=== PATIENT | female | born 1980 | race Caucasian/White ===

== ENCOUNTER → 2018-06-30 15:50 | Outpatient (CLI) | payer OTHER, SELFPAY ==
[2018-07-05 14:42] LABS: HPV Reflexed? NOT INDICATED
== END ==
PROVIDERS: Visit Provider Obstetrics & Gynecology
DX: Z12.4 Encounter for screening for malignant neoplasm of cervix (principal)
CPT/HCPCS: 88175; G0145

== ENCOUNTER → 2019-09-15 | Outpatient (CLI) | payer OTHER, SELFPAY ==
[2019-09-19 20:06] LABS: Age Gdln ACOG Testing 30-65 (.)
[2019-09-21 11:46] LABS: HPV APTIMA, High Risk Negative (Negative)
[2019-09-21 11:49] LABS: HPV Reflexed? YES, CHARGE PATIENT
== END | disposition home or self-care (01) ==
LOC: LABSPEC 16:21
PROVIDERS: Visit Provider Obstetrics & Gynecology
DX: Z12.4 Encounter for screening for malignant neoplasm of cervix (principal)
CPT/HCPCS: 87624; 88175; G0145

== ENCOUNTER → 2021-06-10 14:21 | Outpatient (CLI) | payer OTHER, SELFPAY ==
[2021-06-13 16:19] LABS: HPV APTIMA, High Risk Negative (Negative)
== END ==
PROVIDERS: Visit Provider Obstetrics & Gynecology
DX: Z12.4 Encounter for screening for malignant neoplasm of cervix (principal)
CPT/HCPCS: 87624; 88175; G0145

== ENCOUNTER → 2021-07-11 07:18 | Outpatient (CLI) | payer OTHER, SELFPAY ==
--- NOTE | 2021-07-11 07:22 | BI_ITS ---
MAMMOGRAPHY - BILATERAL SCREENING REASON FOR EXAM: Female, 40 years old. Routine annual screening examination. PERTINENT HISTORY: Mother with breast cancer. Grandmother with breast cancer. TECHNIQUE: Digital bilateral breast kulwant (3D mammographic acquisition) in the CC and MLO projections. 2-D mediolateral oblique (MLO) and craniocaudad (CC) views of both breasts were obtained. CAD: Full Field Digital Mammography with Computer Added Detection was performed. COMPARISON: None. Baseline examination. FINDINGS: Breast Composition: The breasts are extremely dense, which lowers the sensitivity of mammography. There are no dominant masses or suspicious calcifications. No other significant abnormalities are identified. BI/SCRN MAMM (CAD)W/KULWANT BILAT IMPRESSION: Negative screening mammogram. Yearly followup mammogram recommended. (A) ASSESSMENT CATEGORY: BIRADS Category 1: Negative. A letter regarding these results will be sent to the patient by the facility within 30 days. Approximately 10% of breast cancers are not detected by mammography. A normal mammogram should not delay biopsy of a clinically suspicious abnormality. [id number] Electronically Signed: Reno Franco MD at 8:48 EDT , Service support ,
[2021-07-11 09:21] LABS: NATERA MAILED SPECIMEN
[2021-07-11 09:22] LABS: Vitamin D,25 Hydroxy 39.5 ng/mL
[2021-07-11 09:32] LABS: Cholesterol 162 mg/dL (200); Glucose 100 mg/dL (74-106); High Density Lipoprotein 54 mg/dL; Thyroid Stim Hormone (TSH) 5.72 uIU/mL (0.358-3.74); Triglycerides 76 mg/dL; Very Low Density Lipoprotein 15 mg/dL (5-40)
== END ==
LOC: OPBI 07:22 → LAB 07:49
PROVIDERS: Referring Provider Obstetrics & Gynecology; Visit Provider Obstetrics & Gynecology
DX: Z12.31 Encounter for screening mammogram for malignant neoplasm of breast (principal); Z13.21 Encounter for screening for nutritional disorder; Z13.29 Encounter for screening for other suspected endocrine disorder; Z13.220 Encounter for screening for lipoid disorders; Z13.1 Encounter for screening for diabetes mellitus
CPT/HCPCS: 36415; 77063; 77067; 80061; 82306; 82947; 84443

== ENCOUNTER → 2021-08-26 09:23 | Outpatient (CLI) | payer OTHER, SELFPAY ==
[2021-08-26 12:18] LABS: Absolute Neutrophil Count 3.8 X10^3/uL (2.0-7.7); Basophil# 0.03 X10^3/uL; Basophil% 0.5 % (0-1); Eosinophil# 0.16 X10^3/uL; Eosinophils% 2.7 % (0-5); Hematocrit 39.1 % (37-47); Hemoglobin 12.9 g/dL (12.0-15.0); Lymphocyte % 24.9 % (19-41); Mean Corpuscular Hgb 31.7 pg (27.0-32.0); Mean Corpuscular Volume 96.1 fL (81-99); Mean Platelet Vol. 9.9 fl (6.2-12.0); Monocyte# 0.54 X10^3/uL; NRBC Flagged by Analyzer 0 % (0-5); Neutrophil # 3.77 X10^3/uL (2.7-7.7); Neutrophil % 62.6 % (47-70); Platelet Count 258 K/mm3 (150-450); RBC Distribution Width CV 11.9 % (11.6-14.6); RBC Distribution Width SD 41.6 fl (35.1-43.9); Red Blood Count 4.07 M/mm3 (4.2-5.4)
[2021-08-26 13:01] LABS: ALB/GLOB Ratio 1.2 RATIO (0.9-2.4); AST(SGOT) 14 U/L (15-37); Alanine Aminotransfer ALT/SGPT 25 U/L (13-56); Albumin, Serum 3.7 g/dL (3.2-5.0); Alkaline Phosphatase 45 U/L (45-117); Anion Gap 5 (5-15); BUN 12 mg/dL (7-18); BUN/Creat Ratio 18.2 RATIO (10-20); Calcium,Total 9.2 mg/dL (8.5-10.1); Chloride 106 mmol/L (98-107); Creatinine, Serum 0.66 mg/dL (0.55-1.02); EST Glomerular Filtration Rate 105 mL/min (>60); Est Glom Filt Rate - Afr Amer 127 mL/min (>60); Globulin 3.2 g/dL (2.2-4.2); Glucose 82 mg/dL (74-106); Potassium 3.9 mmol/L (3.5-5.1); Protein, Total 6.9 g/dL (6.4-8.2); Sodium Level 140 mmol/L (136-145); T4 Free Direct 0.72 ng/dL (0.76-1.46); Thyroid Stim Hormone (TSH) 4.24 uIU/mL (0.358-3.74)
== END ==
PROVIDERS: PCP Internal Medicine; Referring Provider Internal Medicine; Visit Provider Internal Medicine
DX: R94.6 Abnormal results of thyroid function studies (principal)
CPT/HCPCS: 36415; 80053; 84439; 84443; 85025

== ENCOUNTER 2021-10-07 09:15 | Outpatient (CLI) | payer OTHER, SELFPAY ==
[2021-10-07 13:02] LABS: T4 Free Direct 0.81 ng/dL (0.76-1.46); Thyroid Stim Hormone (TSH) 3.61 uIU/mL (0.358-3.74)
== END 2021-10-07 23:59 | disposition short-term general hospital (02) ==
LOC: BIMLAB 09:16
PROVIDERS: PCP Internal Medicine; Visit Provider Internal Medicine
DX: R03.0 Elevated blood-pressure reading, without diagnosis of hypertension (principal); E03.9 Hypothyroidism, unspecified; R94.6 Abnormal results of thyroid function studies
CPT/HCPCS: 36415; 84439; 84443

== ENCOUNTER → 2022-07-14 | Outpatient (CLI) | payer OTHER, SELFPAY ==
--- NOTE | 2022-07-14 11:05 | BI_ITS ---
MAMMOGRAPHY - BILATERAL SCREENING REASON FOR EXAM: Female, 41 years old. Routine annual screening examination. PERTINENT HISTORY: Non-contributory. TECHNIQUE: Digital bilateral breast kulwant (3D mammographic acquisition) in the CC and MLO projections. 2-D mediolateral oblique (MLO) and craniocaudad (CC) views of both breasts were obtained. CAD: Full Field Digital Mammography with Computer Added Detection was performed. COMPARISON: Comparison is made with prior study 07/11/2021. FINDINGS: Breast Composition: The breasts are extremely dense, which lowers the sensitivity of mammography. There are no dominant masses or suspicious calcifications. No other significant abnormalities are identified. There has been no significant change since the prior study. BI/SCRN MAMM (CAD)W/KULWANT BILAT IMPRESSION: Stable bilateral screening mammogram. Yearly follow-up mammogram recommended. (A) ASSESSMENT CATEGORY: BIRADS Category 1: Negative. A letter regarding these results will be sent to the patient by the facility within 30 days. Approximately 10% of breast cancers are not detected by mammography. A normal mammogram should not delay biopsy of a clinically suspicious abnormality. [id number] Electronically Signed: Reno Franco MD at 12:37 EDT ,
== END | disposition home or self-care (01) ==
LOC: OPBI 11:04
PROVIDERS: PCP Internal Medicine; Referring Provider Obstetrics & Gynecology; Visit Provider Obstetrics & Gynecology
DX: Z12.31 Encounter for screening mammogram for malignant neoplasm of breast (principal)
CPT/HCPCS: 77063; 77067

== ENCOUNTER → 2022-12-01 | Outpatient (CLI) | payer OTHER, BC, SELFPAY | END | disposition home or self-care (01) | LOC: LABSPEC 16:01 | PROVIDERS: PCP Internal Medicine; Referring Provider Surgery; Visit Provider Surgery | DX: K42.9 Umbilical hernia without obstruction or gangrene (principal) | CPT/HCPCS: 87081 ==

== ENCOUNTER 2022-12-10 07:44 | Day surgery (SDC) | payer OTHER, BC, SELFPAY ==
[2022-12-10] MEDS: Lactated Ringers 1,000 ML 15 ML IV (08:34)
[2022-12-10 08:37] LABS: Hematocrit 39.7 % (37-47); Hemoglobin 13.6 g/dL (12.0-15.0); Mean Corp Hgb Conc 34.3 g/dL (32-36); Mean Corpuscular Hgb 32.2 pg (27.0-32.0); Mean Corpuscular Volume 94.1 fL (81-99); Mean Platelet Vol. 9.8 fl (6.2-12.0); Platelet Count 257 K/mm3 (150-450); RBC Distribution Width CV 11.9 % (11.6-14.6); RBC Distribution Width SD 40.7 fl (35.1-43.9); Red Blood Count 4.22 M/mm3 (4.2-5.4); White Blood Count 5.3 K/mm3 (4.4-11.0)
[2022-12-10 08:42] LABS: International Normalized Ratio 1.2; Partial Thromboplast Time 36.3 Seconds (24.1-36.2); Prothrombin Time (Protime)PT. 14.5 SECONDS (11.7-14.9)
[2022-12-10 08:43] VITALS: BP 113/63; PULSE 78; RESP 18; TEMP 37.2; O2SAT 100; BMI 26.3
[2022-12-10 08:49] LABS: AST(SGOT) 10 U/L (15-37); Alanine Aminotransfer ALT/SGPT 20 U/L (13-56); Albumin, Serum 4.4 g/dL (3.2-5.0); Alkaline Phosphatase 40 U/L (45-117); Bilirubin, Direct 0.17 mg/dL (0.00-0.30); Protein, Total 7.4 g/dL (6.4-8.2)
[2022-12-10] MEDS: Cefazolin 2 GM in 0.9% Normal Saline 100 ML IV (10:11)
--- NOTE | 2022-12-10 10:12 | PCM.HP.BLA ---
History and Physical Date of Admission: 12/10/22 Date of Service:? 12/01/22 MR#: [id number] Acct: [id number] Name:ROLANDO FARFAN Rep #: [id number] : 1980 ? ? Provider: Dr. Mc Valenzuela MD Age/Sex:? 42/F ? ? Location: [facility] Status: Signed Intake Vital Signs ? 12/01/2312:54 Height 5 ft 4 in Weight: 157 lb BMI 26.9 BP 132/84 H Blood Pressure Location Rt brachial Position Standing Respiration 17 Pulse 79 Pulse Source Monitor Temp 97.6 F L Temp Source Temporal Pulse Oximetry (%) 99 Oxygen Delivery Method room air Intake Visit Reasons:?UMBILICAL HERNIA Chief Complaint: hernia concerns Is patient in pain?: Yes Allergies No Known Allergies Allergy (Unverified 12/01/22 13:55) Medications biotin 1 mg capsule 1 mg PO DAILY 06/10/21 [History Confirmed 12/01/22] multivitamin 1 tab PO DAILY 06/10/21 [History Confirmed 12/01/22] Saccharomyces boulardii 250 mg capsule (Daily Probiotic (S. boulardii)) 5,000 mmu cells PO DAILY 11/27/22 [History Confirmed 12/01/22] PFSH Medical History? Abnormal thyroid function test Elevated blood pressure reading in office without diagnosis of hypertension Hypothyroidism Umbilical hernia Surgical History? H/O section History of wisdom tooth extraction, class IV edentulism Hx of tubal ligation Family History? Mother Breast cancer,? Onset Age: 71 Social History? household members:? family number of children:? 2 current occupational status:? employed current occupation:? [employer] pets and animals:? Yes Smoking Status:? Never smoker second hand exposure:? No alcohol intake:? current alcohol intake frequency: holidays/special occasions only substance use type:? does not use what type of physical activity do you participate in:? walking frequency:? 3-4 times per week seatbelt use:? always do you feel safe at home:? Yes additional social history:? [employer] HPI HPI HPI: Patient is a 42-year-old female who presents for umbilical hernia.? This finding was first noticed by Dr. Mccormick of [facility] during a annual exam July 02, 2022.? However, patient is referred from Dayo Fox NP.? She states at the time of the diagnosis, this was an incidental finding and she had plan to get a second opinion, but really had no symptoms so these plans lapsed.? She now notes that she has had 4 weeks of burning, bloating, and shooting pain with this hernia.? She reports that the pain seems to be occurring more frequently and has persisted since her exam at the end of last week.? She notes that bending over to put her socks on today aggravated the pain.? She also reports that her bowel movements have been erratic and that she has always had some difficulty, but they transiently improved, and then have returned to more of a constipation problem.? She denies any complete cessation of bowel function or any unexplained nausea and vomiting.? She also notes that these bowel movements are nonbloody.? She denies any significant bulging with this hernia defect and is unable to recall how it may have occurred.? She does have a history of 2 pregnancies?1 born via a difficult vaginal delivery and 1 via section.? This represents her only past surgical history.? 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 She does express a wish to return to more physical activity once she can hopefully have this hernia addressed. Patient has no personal history of smoking.? Has no personal history of recurrent cutaneous infections including staph.? ROS General General: No weight change, appetite, fatigue, colon cancer, breast cancer or weakness HEENT HEENT: No difficulty swallowing, eye injury, eye surgery, swollen glands or hoarseness Endo Endocrine: No thyroid disease, diabetes mellitus, thyroid cancer, Hair loss, heat intolerance or cold intolerance Skin Skin: No rash or changing moles Musc Musculoskeletal: No back problems, arthritis, rheumatoid arthritis, gout or joint pain Cardio Cardiovascular: No murmur, pacemaker, heart disease, atrial fibrillation, high blood pressure, heart attack, heart stent, palpitations, shortness of breat with exertion or chest pain Psych Psychiatric: Yes anxiety; No depression or hearing voices Resp Respiratory: No shortness of breath, No sleep apnea, No cough, No COPD, No asthma, No emphysema and No wheezing Gastro Gastrointestinal: Yes abdominal pain, Yes nausea or vomiting, Yes diarrhea, Yes constipation, No blood in stool, No acid reflux, No hemorrhoids, No ulcers, No gallbladder problem and No black,tarry stools Nitesh Hematologic: No blood thinners, No blood disorders, No bleeding, No anemia and No blood clots Neuro Neurologic: No system reviewed and no additional complaints, except as documented, No as per HPI, No abnormal gait, No abnormal hearing, No abnormal movements, No abnormal speech, No behavioral changes, No burning sensations, No confusion, No convulsions, No disequilibrium, No dizziness, No localized weakness, No frequent falls, No headache(s), No lack of coordination, No loss of vision, No memory loss, No numbness, No other visual disturbances, No radicular pain, No restless legs, No sensory deficit, No syncope, No tingling, No tremor(s), No weakness and No other Exam Const General: cooperative and anxious Orientation: alert, awake and oriented x3 Resp Effort & Inspection: normal respiratory effort Auscultation: no rales, no rhonchi and no wheezes GI Other: Nondistended, scars consistent with prior supraumbilical piercing, visible umbilical herniation.? Soft and nontender to palpation x4 quadrants.? Palpable approximately 2 cm fascial defect at the umbilicus with reducible fat contents.? Tenderness with palpation. Assessment and Plan Assessment and Plan (1) Umbilical hernia: ?Status:?Chronic ?Comment: This is a 42-year-old female, is otherwise healthy, who presents for for surgical consultation regarding a symptomatic umbilical hernia at first diagnosed June 2022.? Patient's primary complaint with this hernia has been the development of pain over the last 4 weeks.? She denies any significant bulging or any clear evidence of changes from this hernia to her bowel motility.? On exam identify a reducible 2 cm umbilical hernia.? At this size, I would recommend a repair simply for the risk of bowel involvement, but moreover with her crescendo in pain complaints believe that it is reasonable to approach the repair in elective fashion but is soon as possible.? I have shared with her the options for repair to include open primary, open with mesh, and minimally invasive with mesh.? Patient states that she is interested in getting back to more activity and therefore wishes to reduce her risk for recurrence by choosing the most durable repair she can have.? I have shared with patient and her that this is somewhat dependent on how wide of overlap we can achieve with a synthetic mesh and that it is placed appropriately.? With these stated goals, I recommended that we pursue a minimally invasive umbilical hernia repair with mesh.? Patient and her are accepting of this recommendation and of the discussed lifting restrictions?no lifting greater than 10 pounds for 5 weeks. I have examined the patient and the H&P has been reviewed. There are no clinical changes since date of exam. Patient confirms that she is ready for our procedure and denies any further questions. Operative and postoperative expectations were reviewed?including postoperative lifting restrictions. Patient and her both expressed understanding. We will proceed to the operating room for robot-assisted umbilical hernia repair with mesh as described above.
--- NOTE | 2022-12-10 13:04 | PCM.OPRPT ---
Report of Operation Date of Procedure: 12/10/22 Pre-Operative Diagnosis: Umbilical hernia Post-Operative Diagnosis: Fat incarcerated umbilical hernia Surgery/Procedure Performed:: Robot-assisted umbilical hernia repair with mesh Description of Surgical Findings:: 1.5 wide by 1.0 cm long fascial defect incarcerated with fat Surgeon: Mc Valenzuela Type of Anesthesia: General/Supplemental Anesthesiologist: Giancarlo Brito Drains: NA Estimated Blood Loss (mL): 20 Description of Procedure: After appropriate identification in the preoperative holding area, the patient was brought to the operating room suite where she was positioned supine the operating table. Preoperative antibiotics were administered. Patient was then induced with a general anesthetic. Patient's abdomen was prepped and draped in the usual sterile fashion. A formal timeout followed to confirm patient and procedure. Procedure was begun with a Veress entry at Lopez's point. Once the set point pressure was reached, this Veress needle was exchanged for an optical trocar and an optical entry was made in this location. Laparoscopic investigation revealed no inadvertent injury to the viscera below. 2 additional 8 mm robotic trochars were placed along the abdominal wall laterally taking care to avoid the bony prominences of the costal margin and the ASIS. A transversus abdominis plane block was created with 0.25% bupivacaine with epinephrine (30 mL) under laparoscopic vision prior to completion of port placement. The robot was then brought in and docked in standard fashion. Robotically a peritoneal flap was raised approximately 2 cm medial from my trocars and carried this away towards the contralateral abdominal wall. Great care was taken to lower the peritoneum off of the posterior rectus sheath and avoid any rents in the peritoneal flap. Perforating vessels were sealed with monopolar energy to maintain hemostasis as this flap dissection proceeded. I then addressed the hernia directly by opening the scar tissue about the hernia sac and carefully applying manual traction downward until the hernia was fully reduced of its incarcerated fat contents. The flap was then further dissected laterally until it appeared we had adequate width. The final hernia defect measured 1 cm longitudinally, by 1.5 cm transversely. The hernia defect was closed with a #1 stratafix suture by running the fascial defect closed and then running the suture back upon itself. Next a 6 cm x 8 cm ProGrip mesh was introduced into the peritoneum and pressed into location. Several interrupted 3-0 Vicryl sutures were used to tack this mesh into position against the abdominal wall and cardinal fixation. Lastly the peritoneum was closed with 2x3-0 V-Loc sutures in a bidirectional fashion overlapping in the middle. The robot was then undocked and the trocars were removed. Port sites were closed with interrupted 4-0 Monocryl in subcuticular fashion. Steri-Strips and OpSite dressings were applied. Patient was transferred to PACU for ongoing care. Grafts/Implants Used: Progrip mesh LOT [id number] Complications None Admit VTE Documentation VTE Mechan Device Prophylaxis: SCD's
--- NOTE | 2022-12-10 13:12 | DCINST_ITS ---
Discharge Instructions Diet Discharge Diet: No restrictions Activity Discharge Activity: May Not Drive (While taking narcotic pain medication) and May Shower May shower in (days): 2 Ice area for (Minutes): 20 Lifting Restrictions: No lifting greater than 10 pounds for the next 5 weeks Dressing / Incision Call your doctor if your incision/area has: Continuous Slow Oozing, Increased Pain/ Swelling, Increased Redness, Foul Smelling Discharge and Swelling at the incision site Call your doctor if you observe: Fever of 101 or Higher Change Dressing in: 2 days (Please leave Steri-Strips intact until they fall off spontaneously or are taken off at your follow-up visit) Remove Dressing in: 2 days Cleanse incision/area with: Soap & Water and Keep Dressing Clean & Dry Follow Up Care Please Follow Up With: Mc Valenzuela MD When: 1 week postop Test Results: Test results from this visit will be discussed in further detail at your follow- up appointment, if applicable. Discharge Plan Admission Primary Reason for Your Visit: Umbilical hernia repair Attending Provider: Mc Valenzuela Primary Care Provider: Madhavi Gan Discharge Orders/Prescriptions Prescriptions: New oxycodone 5 mg tablet 5 mg PO Q6H PRN (Reason: pain) 5 Days Qty: 14 0RF No Action multivitamin Tablet 1 tab PO DAILY biotin 1 mg capsule 1 mg PO DAILY Saccharomyces boulardii [Daily Probiotic (S. boulardii)] 250 mg capsule 5,000 mmu cells PO DAILY ibuprofen 600 mg Tablet 600 mg PO Q6H PRN (Reason: Pain) Referrals / Follow Up: Madhavi Gan MD [Primary Care Provider] - Disposition Disposition (needs filled in before D/C Order can be placed): Home, Self Care
[2022-12-10 13:21] VITALS: BP 113/63; BP 115/65; PULSE 79; RESP 18; TEMP 36.7; O2SAT 100
[2022-12-10 13:30] VITALS: BP 104/75; BP 113/63; PULSE 84; RESP 18; O2SAT 100
[2022-12-10 13:45] VITALS: BP 113/63; BP 115/76
[2022-12-10 13:59] VITALS: BP 110/76; BP 113/63; PULSE 79; RESP 18; TEMP 36.7; O2SAT 100
[2022-12-10] MEDS: Ketorolac 30 MG/ML Syringe IV (14:50)
[2022-12-10] MEDS: oxyCODONE 5 MG Tablet PO (14:51)
[2022-12-10 15:41] VITALS: BP 112/71; BP 113/63; PULSE 73; RESP 16; TEMP 37.3; O2SAT 98
== END 2022-12-10 15:50 | disposition home or self-care (01) ==
LOC: SDC 07:45 → AC 07:46
PROVIDERS: Anesthesiology; PCP Internal Medicine; Referring Provider Surgery; Visit Provider Surgery
PROC: (CPT 49591; principal; 2022-12-10 10:35)
DX: K42.0 Umbilical hernia with obstruction, without gangrene (principal); E03.9 Hypothyroidism, unspecified
CPT/HCPCS: 49591; 00830; 80076; 85027; 85610; 85730; J7120; J2405

== ENCOUNTER → 2023-07-22 | Outpatient (CLI) | payer OTHER, BC, SELFPAY ==
--- NOTE | 2023-07-22 16:10 | BI_ITS ---
MAMMOGRAPHY - BILATERAL SCREENING REASON FOR EXAM: Female, 42 years old. Routine annual screening examination. PERTINENT HISTORY: Mother with breast cancer. Grandmother with breast cancer. TECHNIQUE: Digital bilateral breast kulwant (3D mammographic acquisition) in the CC and MLO projections. 2-D mediolateral oblique (MLO) and craniocaudad (CC) views of both breasts were obtained. CAD: Full Field Digital Mammography with Computer Added Detection was performed. COMPARISON: Comparison is made with prior study July 14, 2022 and July 11, 2021. FINDINGS: Breast Composition: The breasts are extremely dense, which lowers the sensitivity of mammography. There are no dominant masses or suspicious calcifications. No other significant abnormalities are identified. There has been no significant change since the prior study. BI/SCRN MAMM (CAD)W/KULWANT BILAT IMPRESSION: Stable bilateral screening mammogram. Yearly follow-up mammogram recommended. (A) ASSESSMENT CATEGORY: BIRADS Category 1: Negative. A letter regarding these results will be sent to the patient by the facility within 30 days. Approximately 10% of breast cancers are not detected by mammography. A normal mammogram should not delay biopsy of a clinically suspicious abnormality. [id number] Electronically Signed: Reno Franco MD at 8:39 EDT ,
== END | disposition home or self-care (01) ==
LOC: OPBI 16:09
PROVIDERS: PCP Internal Medicine; Referring Provider Obstetrics & Gynecology; Visit Provider Obstetrics & Gynecology
DX: Z12.31 Encounter for screening mammogram for malignant neoplasm of breast (principal); Z80.3 Family history of malignant neoplasm of breast
CPT/HCPCS: 77063; 77067

== ENCOUNTER → 2024-07-27 | Outpatient (CLI) | payer OTHER, BC, SELFPAY ==
--- NOTE | 2024-07-27 15:36 | BI_ITS ---
MAMMOGRAPHY - BILATERAL SCREENING REASON FOR EXAM: Female, 43 years old. Routine annual screening examination. PERTINENT HISTORY: Mother with breast cancer. Grandmother with breast cancer. TECHNIQUE: Digital bilateral breast kulwant (3D mammographic acquisition) in the CC and MLO projections. 2-D mediolateral oblique (MLO) and craniocaudad (CC) views of both breasts were obtained. CAD: Full Field Digital Mammography with Computer Added Detection was performed. COMPARISON: Comparison is made with prior study July 22, 2023 and July 14, 2022. FINDINGS: Breast Composition: The breasts are extremely dense, which lowers the sensitivity of mammography. There are no dominant masses or suspicious calcifications. Stable small benign-appearing bilateral axillary lymph nodes. No other significant abnormalities are identified. There has been no significant change since the prior study. BI/SCRN MAMM (CAD)W/KULWANT BILAT IMPRESSION: Stable bilateral screening mammogram. Yearly follow-up mammogram recommended. (A) ASSESSMENT CATEGORY: BIRADS Category 2: Benign. A letter regarding these results will be sent to the patient by the facility within 30 days. Approximately 10% of breast cancers are not detected by mammography. A normal mammogram should not delay biopsy of a clinically suspicious abnormality. [id number] Electronically Signed: Reno Franco MD at 8:32 EDT ,
== END | disposition home or self-care (01) ==
LOC: OPBI 15:36
PROVIDERS: PCP Internal Medicine; Referring Provider Obstetrics & Gynecology; Visit Provider Obstetrics & Gynecology
DX: Z12.31 Encounter for screening mammogram for malignant neoplasm of breast (principal); Z80.3 Family history of malignant neoplasm of breast
CPT/HCPCS: 77063; 77067

== ENCOUNTER → 2024-12-30 | Outpatient (CLI) | payer OTHER, BC, SELFPAY ==
--- NOTE | 2024-12-30 15:12 | RAD_ITS ---
EXAM: XR Chest, 2 Views CLINICAL INDICATION: COUGH TECHNIQUE: Frontal and lateral views of the chest. COMPARISON: No relevant prior studies available. FINDINGS: LUNGS AND PLEURAL SPACES: Unremarkable. No consolidation. No pneumothorax. HEART: Unremarkable. No cardiomegaly. MEDIASTINUM: Unremarkable. Normal mediastinal contour. BONES/JOINTS: Unremarkable. No acute fracture. RAD/Chest PA and Lateral IMPRESSION: No acute cardiopulmonary process. Reading Location: [id number]
== END | disposition home or self-care (01) ==
LOC: RAD 15:07
PROVIDERS: PCP Internal Medicine; Referring Provider Physician Assistant; Visit Provider Physician Assistant
DX: R05.9 Cough, unspecified (principal); J45.909 Unspecified asthma, uncomplicated
CPT/HCPCS: 71046